=== PATIENT | female | born 2005 | race Caucasian/White ===

== ENCOUNTER 2024-06-10 07:27 | Observation (INO) ==
--- NOTE | 2024-06-10 07:41 | ED Physician Documentation ---
History of Present Illness Stated complaint Stated Complaint: N/V,STOMACH PX Chief complaint Chief Complaint: Abd Pain Additonal information Additional information: 19-year-old who is homeless with frequent marijuana use, profound anxiety (this is about her 15th emergency department visit so far this month) awoke this morning with periumbilical pain "burning" and nausea/vomiting with about 5 episodes of nonbloody emesis. No changes in bowel movements. No fevers. Meds/Allgy Home Medications Ambulatory Orders Medication Instructions Recorded Confirmed omeprazole 20 mg capsule,delayed 20 mg PO DAILY #30 caps 05/20/24 06/10/24 release ondansetron 4 mg disintegrating 4 mg PO Q8H PRN nausea and 05/25/24 06/10/24 tablet vomiting #30 tabs hydroxyzine pamoate 50 mg capsule 50 mg PO QID PRN anxiety #20 caps 06/02/24 06/10/24 escitalopram oxalate 10 mg tablet 10 mg PO QDAY #30 tabs 06/03/24 06/10/24 haloperidol 2 mg tablet 2 mg PO BID 06/10/24 06/10/24 Allergies Allergies Allergy/AdvReac Type Severity Reaction Status Date / Time pineapple Allergy Intermediate Itching Verified 06/10/24 07:39 PFSH Medical History Medical History (Updated 06/10/24 @ 13:09 by Jalen Mirza MD) Depression No pertinent past medical history Surgical History Surgical History No pertinent past surgical history Social History Social History (Updated 06/03/24 @ 08:06 by Brady Araujo, AALIYAH, CHICK SEXER, MACHINE II TRIMMER) Smoking Status: Current every day smoker Number of Years Smoked: 12 Second hand tobacco smoke exposure: Yes Do you dip or chew tobacco?: No Do you vape?: Yes Patient requests smoking cessation consult: No Living arrangement: Homeless Marital Status: Single Living Condition: Other Support Person: Yes Relationship: Living Situation Details: [place] Physical Activity: Walking Level: Independent Do you feel safe in your home environment?: Yes Suffered physical, verbal, emotional, or financial abuse?: No History of Abuse: No ETOH Use: None Substance Use: cannabis (any form) Substance Use Details: Dab cards Are you sexually active?: Yes Control Method: Contraceptive implant Sexual Practice Notes: LMP: 06/01 - Forgot name of implant Occupation: [employer] Are you following a diet prescribed by a doctor: No Are you following a special diet: No POLST Patient has POLST: No Exam Constitutional Retching without vomiting into a bag Gastrointestinal abdomen soft to palpation and nontender to palpation Neurology GCS 15 Psychiatry oriented x3 Results Vitals Vitals: Vital Signs - 24 hr 06/10/24 07:40 06/10/24 09:05 06/10/24 09:10 Temperature 36.4 C L Temperature Source Temporal Artery Scan Pulse Rate 89 96 Respiratory Rate 28 H 20 Blood Pressure 140/117 H 142/88 H O2 Saturation 100 98 O2 Source Room air Room air Pain Intensity 6 6 6 06/10/24 09:44 06/10/24 09:44 06/10/24 11:21 Temperature 36.2 C L Temperature Source Temporal Artery Scan Pulse Rate 78 Respiratory Rate 16 Blood Pressure 136/89 H O2 Saturation 98 O2 Source Room air Pain Intensity 6 6 6 06/10/24 11:22 06/10/24 13:00 06/10/24 13:57 Temperature 36.5 C Temperature Source Tympanic Pulse Rate 70 Respiratory Rate 18 Blood Pressure 128/86 O2 Saturation 100 O2 Source Room air Pain Intensity 6 4 6 Oxygen O2 Source Room air Labs Labs: Laboratory Tests 06/10/24 06/10/24 07:51 07:52 WBC 13.0 H RBC 5.07 Hgb 14.8 Hct 46.2 MCV 91.1 MCH 29.2 MCHC 32.0 RDW 12.7 Plt Count 404 MPV 10.3 Neut # (Auto) 9.6 H Lymph # (Auto) 2.5 Rolette # (Auto) 0.6 Eos # (Auto) 0.2 Baso # (Auto) 0.1 Absolute Nucleated RBC 0.00 Nucleated RBC % 0.0 Sodium 139 Potassium 3.8 Chloride 102 Carbon Dioxide 25 Anion Gap 12.0 BUN 13 Creatinine 0.9 Estimated GFR (MDRD) 80 L Glucose 173 H Calcium 9.7 Total Bilirubin 0.3 AST 17 ALT 18 Alkaline Phosphatase 64 Total Protein 8.1 Albumin 5.0 Globulin 3.1 Albumin/Globulin Ratio 1.6 Lipase 34 Serum HCG, Qual NEGATIVE Rads (name of study) CT A/P- Constipation, O/W neg: Relevant Findings:: Final report received and EMP independent interpretation of test PD Medical Decision Making ED course ED course: 19-year-old presents with what seems like cannabinoid hyperemesis. Very benign examination. She was administered divided doses of pain medication and antiemetics with some improvement but very slowly. Decision to broaden the differential made at approximately 1:25 AM after lack of improvement. CMP was unremarkable. CBC showing mild leukocytosis, CT of the abdomen and pelvis demonstrates constipation, otherwise negative. She still seemed miserable although with a benign exam. Spoke with the hospitalist for admission at approximately 1 PM but he tells me that the hospital is full but they may be able to admit patients later. A bed did open up and I presented the case to the hospitalist for observation at 2:45 PM. Discharge Plan Discharge Patient Disposition: ED Place in Observation Condition: Stable Clinical Impression: Abdominal pain, Intractable nausea and vomiting Prescriptions: No Action omeprazole 20 mg capsule,delayed release(DR/EC) 20 mg PO DAILY Qty: 30 2RF ondansetron 4 mg tablet,disintegrating 4 mg PO Q8H PRN (Reason: nausea and vomiting) Qty: 30 0RF hydroxyzine pamoate 50 mg capsule 50 mg PO QID PRN (Reason: anxiety) Qty: 20 0RF haloperidol 2 mg tablet 2 mg PO BID Patient Comments: TAKE 1 TABLET BY MOUTH TWICE DAILY escitalopram oxalate 10 mg tablet 10 mg PO QDAY Qty: 30 1RF Print Language: Vietnamese Stand Alone Forms: PCP List
[2024-06-10] MEDS: HALOPERIDOL 5 MG/ML VIAL IVP STA ×2 (07:54→11:35)
[2024-06-10] MEDS: SODIUM CHLORIDE 0.9% 1,000 ML IV STA (07:55)
[2024-06-10 08:14] LABS: ALBUMIN/GLOBULIN RATIO 1.6 (1.0-2.2); ALKALINE PHOSPHATASE 64 IU/L (42-121); ALT ALANINE AMINOTRANSFERASE 18 IU/L (10-60); AST ASPARTATE AMINOTRANSFERASE 17 IU/L (10-42); BILIRUBIN,TOTAL 0.3 mg/dL (0.2-1.0); BUN - BLOOD UREA NITROGEN 13 mg/dL (6-20); CALCIUM 9.7 mg/dL (8.5-10.3); CARBON DIOXIDE - CO2 25 mmol/L (21-32); CHLORIDE 102 mmol/L (101-111); CREATININE 0.9 mg/dL (0.6-1.3); GFR - MDRD 80 (>89); GLUCOSE 173 mg/dL (74-104); LIPASE 34 U/L (11-82); POTASSIUM 3.8 mmol/L (3.5-4.5); SODIUM 139 mmol/L (135-145); TOTAL PROTEIN 8.1 g/dL (6.4-8.9)
[2024-06-10 08:20] LABS: HCG,QUALITATIVE BLOOD NEGATIVE
[2024-06-10] MEDS: MAG HYDROX/AL HYDROX/SIMETH 30 ML UDC PO STA (08:39)
[2024-06-10] MEDS: LIDOCAINE VISCOUS 2% 15 ML UDC MM STA (08:39)
[2024-06-10] MEDS: METOCLOPRAMIDE 10 MG/2 ML VIAL IVP STA ×2 (09:05→13:54)
[2024-06-10] MEDS: HYDROmorphone 1 MG/ML CARPUJECT IVP STA (09:05)
[2024-06-10] MEDS: KETOROLAC 15 MG/ML VIAL IVP STA ×2 (09:44→13:57)
[2024-06-10] MEDS: ONDANSETRON 4 MG/2 ML VIAL IVP STA (09:44)
[2024-06-10 11:38] LABS: BASOPHILS # (AUTO) 0.1 10^3/uL (0.0-0.1); BASOPHILS % (AUTO) 0.6 %; EOSINOPHILS # (AUTO) 0.2 10^3/uL (0.0-0.7); EOSINOPHILS % (AUTO) 1.3 %; HCT - HEMATOCRIT 46.2 % (37.0-47.0); HGB - HEMOGLOBIN 14.8 g/dL (12.0-16.0); LYMPHOCYTES # (AUTO) 2.5 10^3/uL (1.5-3.5); LYMPHOCYTES % (AUTO) 19.5 %; MEAN CORPUSCULAR HEMOGLOBIN 29.2 pg (27.0-31.0); MEAN CORPUSCULAR VOLUME 91.1 fL (81.0-99.0); MEAN PLATELET VOLUME 10.3 fL (7.9-10.8); MONOCYTES # (AUTO) 0.6 10^3/uL (0.0-1.0); MONOCYTES % (AUTO) 4.4 %; NEUTROPHILS # (AUTO) 9.6 10^3/uL (1.5-6.6); NEUTROPHILS % (AUTO) 73.9 %; PLT - PLATELET COUNT 404 10^3/uL (130-450); RED BLOOD COUNT 5.07 10^6/uL (4.20-5.40); RED CELL DISTRIBUTION WIDTH 12.7 % (12.0-15.0)
[2024-06-10] MEDS ORDERED: iohexoL-300 100 ML VIAL ONE (11:39)
[2024-06-10] MEDS: iohexoL-300 100 ML VIAL IVP ONE (12:33)
--- NOTE | 2024-06-10 12:44 | CT Report ---
PROCEDURE: CT Abdomen/Pelvis W INDICATIONS: abd pain, iv only CONTRAST: 100ml omni 300 TECHNIQUE: After the administration of intravenous contrast, a CT scan of the abdomen and pelvis was performed. Images were recorded and evaluated at appropriate window settings. Reformats: coronal and sagittal. F or radiation dose reduction, the following was used: automated exposure control, adjustment of mA and /or kV according to patient size. COMPARISON: None. FINDINGS: Image quality: Diagnostic. Lower chest: Unremarkable. Liver: No solid mass. Gallbladder: No radiopaque stones or wall thickening. Biliary tree: No intrahepatic or extrahepatic dilation, accounting for age. Spleen: No splenomegaly. Pancreas: No pancreatic ductal dilation. Adrenals: No adrenal nodule. Kidneys and ureters: No hydronephrosis. No renal cystic lesion which requires follow up. No solid mas s. Stomach, bowel and peritoneum: No gastric or small bowel dilation. No abnormal wall thickening. No pa thologic free fluid. No findings suggesting acute appendicitis. Large fecal load. Lymph nodes: No central or retroperitoneal adenopathy. Vessels: No infrarenal aortic aneurysm. Patent portal vein. PELVIS Reproductive organs: Unremarkable. Bladder: No abnormal wall thickening, accounting for underdistention. Pelvic lymph nodes: No pelvic adenopathy by size criteria. Bones: No aggressive osseous abnormality. Other: No significant ventral or inguinal hernia. IMPRESSION: 1. Large fecal load, no findings suspicious for acute appendicitis. No acute abdominal process identi fied. Reviewed by: Braulio Acuña MD on 06/10/2024 12:42 PM PST Approved by: Braulio Acuña MD on 06/10/2024 12:42 PM PST Station ID: [id number]
[2024-06-10] MEDS: PANTOPRAZOLE 40 MG VIAL IVP STA (13:52)
[2024-06-10] MEDS: D5.45NS W/20 MEQ KCL 1,000 ML IV STA (13:58)
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
[2024-06-10] MEDS ORDERED: SODIUM CHLORIDE FLUSH 0.9% 10 ML SYRINGE IVP PRN (15:19)
[2024-06-10] MEDS ORDERED: PROCHLORPERAZINE 10 MG/2 ML VIAL IVP PRN (15:19)
[2024-06-10] MEDS ORDERED: ACETAMINOPHEN 325 MG TABLET PO PRN (15:19)
[2024-06-10] MEDS: polyethylene glycoL 3350 17 GM PACKET PO SCH (16:06)
[2024-06-10] MEDS: ONDANSETRON 4 MG/2 ML VIAL IVP PRN (16:07)
[2024-06-10] MEDS: SODIUM CHLORIDE FLUSH 0.9% 10 ML SYRINGE IVP SCH (16:08)
[2024-06-10] MEDS: HEPARIN 5,000 UNIT/ML VIAL SUBQ SCH (20:32)
[2024-06-10] MEDS: hydrOXYzine PAMOATE 25 MG CAPSULE PO PRN (20:34)
[2024-06-11 01:04] VITALS: O2SAT 96
[2024-06-11 05:59] LABS: BASOPHILS % (AUTO) 0.4 %; EOSINOPHILS % (AUTO) 0.6 %; HCT - HEMATOCRIT 39.1 % (37.0-47.0); LYMPHOCYTES # (AUTO) 1.7 10^3/uL (1.5-3.5); LYMPHOCYTES % (AUTO) 23.5 %; MEAN CORPUSCULAR HEMOGLOBIN 29.3 pg (27.0-31.0); MEAN CORPUSCULAR HGB CONC 33.2 g/dL (32.0-36.0); MEAN CORPUSCULAR VOLUME 88.3 fL (81.0-99.0); MEAN PLATELET VOLUME 9.7 fL (7.9-10.8); MONOCYTES # (AUTO) 0.5 10^3/uL (0.0-1.0); MONOCYTES % (AUTO) 7.1 %; NEUTROPHILS # (AUTO) 4.9 10^3/uL (1.5-6.6); NEUTROPHILS % (AUTO) 68.1 %; PLT - PLATELET COUNT 316 10^3/uL (130-450); RED BLOOD COUNT 4.43 10^6/uL (4.20-5.40); RED CELL DISTRIBUTION WIDTH 12.6 % (12.0-15.0); WHITE BLOOD COUNT 7.1 x10^3/uL (4.8-10.8)
[2024-06-11 06:13] LABS: CALCIUM 9.4 mg/dL (8.5-10.3); CREATININE 0.8 mg/dL (0.6-1.3); POTASSIUM 4.1 mmol/L (3.5-4.5)
[2024-06-11] MEDS: PANTOPRAZOLE 40 MG TABLET PO SCH (06:57)
[2024-06-11] MEDS: ESCITALOPRAM 10 MG TABLET PO SCH (08:47)
[2024-06-11] MEDS: ONDANSETRON ODT 4 MG TABLET PO PRN (08:49)
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
--- NOTE | 2024-06-11 11:01 | PHARMACY PROGRESS NOTE ---
Best Possible Medication History Admit Date and Time: 06/10/24 1508 Home Medications Medication Instructions Recorded Confirmed Type omeprazole 20 mg capsule,delayed 20 mg PO DAILY #30 caps 05/20/24 06/10/24 Rx release ondansetron 4 mg disintegrating 4 mg PO Q8H PRN nausea and 05/25/24 06/10/24 Rx tablet vomiting #30 tabs hydroxyzine pamoate 50 mg capsule 50 mg PO QID PRN anxiety #20 caps 06/02/24 06/10/24 Rx escitalopram oxalate 10 mg tablet 10 mg PO QDAY #30 tabs 06/03/24 06/10/24 Rx Processed by: Pharmacy Medications reviewed in ED?: Yes Medication History completed: Yes Patient Interview: Completed Secondary Source(s): Insurance records [facility] Statement: As the person ultimately responsible for medication therapy, providers are able to order a medication from an existing home medication list in [facility] via the "Reconcile Routine" prior to Confirmation of that medication by director of academic support. Such practice is discouraged except when the physician, in their clinical judgment, deems that a medical need exists for a medication without regard to previous use.
[2024-06-11 11:32] VITALS: BP 142/99; TEMP 98.6
== END 2024-06-11 11:47 | disposition home or self-care (01) ==
LOC: ED 07:27 → MS2 07:27
PROVIDERS: ADMIT Physician Assistant Medical; ATTEND Physician Assistant Medical
DX: K59.00 Constipation, unspecified; Z59.00 Homelessness unspecified; F41.8 Other specified anxiety disorders; F17.290 Nicotine dependence, other tobacco product, uncomplicated; R11.2 Nausea with vomiting, unspecified; R10.9 Unspecified abdominal pain